=== PATIENT | female | born 1955 | race Caucasian/White ===

== ENCOUNTER → 2018-11-15 17:09 | Outpatient (CLI) | payer MEDICARE, SELFPAY ==
--- NOTE | 2018-11-15 17:17 | DI.RAD.S_ITS ---
PROCEDURE: XR ANKLE RT MIN 3V INDICATIONS: PAIN IN RT ANKLE AND JOINTS OF RT FOOT TECHNIQUE: 3 views of the ankle were acquired. COMPARISON: None. FINDINGS: Bones: No fractures or dislocations. Ankle mortise is normally aligned. No suspicious bony lesions. Prominent plantar and posterior calcaneal spurring. Diffuse hindfoot and midfoot degenerative spurring subchondral sclerosis. Soft tissues: No tibiotalar joint effusion. Achilles tendon appears normal. IMPRESSION: No fracture. Degenerative changes as above. Dictated by: Porfirio Silva M.D. on 11/16/2018 at 8:56 Approved by: Porfirio Silva M.D. on 11/16/2018 at 8:58
== END ==
PROVIDERS: Family Provider Internal Medicine; PCP Internal Medicine; Visit Provider Internal Medicine
DX: M25.571 Pain in right ankle and joints of right foot (principal); M77.31 Calcaneal spur, right foot
CPT/HCPCS: 73610

== ENCOUNTER → 2019-05-09 10:02 | Outpatient (CLI) | payer MEDICARE, SELFPAY ==
--- NOTE | 2019-05-09 | DI.MG.S_ITS ---
BILATERAL DIGITAL SCREENING MAMMOGRAM 3D/2D WITH CAD: 05/09/2019 CLINICAL: Routine screening. Family history of breast cancer. Comparison is made to exams dated: 04/21/2017 mammogram - [facility], 11/21/2015 mammogram, 11/20/2014 mammogram, and 04/10/2013 mammogram - [facility]. There are scattered fibroglandular elements in both breasts. Current study was also evaluated with a Computer Aided Detection (CAD) system. No significant masses, calcifications, or other findings are seen in either breast. There has been no significant interval change. IMPRESSION: NEGATIVE There is no mammographic evidence of malignancy. A 1 year screening mammogram is recommended. This exam was interpreted at Station ID: [id number]. NOTE: For mammograms, a report in lay terms will be sent to the patient. Approximately 15% of breast malignancies will not be visualized mammographically. In the management of a palpable breast mass, a negative mammogram must not discourage biopsy of a clinically suspicious lesion. Electronically Signed By: Po obregon/marck:05/09/2019 19:23:48 letter sent: Normal Exam ACR BI-RADS Category 1: Negative 3341F
== END ==
PROVIDERS: PCP Internal Medicine; Visit Provider Internal Medicine
DX: Z12.31 Encounter for screening mammogram for malignant neoplasm of breast (principal); Z80.3 Family history of malignant neoplasm of breast; Z78.0 Asymptomatic menopausal state; Z82.62 Family history of osteoporosis; R29.890 Loss of height
CPT/HCPCS: 77063; 77067; 77080; 77081

== ENCOUNTER → 2020-01-25 15:14 | Outpatient (CLI) | payer MEDICARE, SELFPAY ==
--- NOTE | 2020-01-25 15:18 | DI.RAD.S_ITS ---
PROCEDURE: XR LUMBAR SPINE 2-3V INDICATIONS: LOW BACK PAIN TECHNIQUE: 3 views of the lumbar spine were acquired. COMPARISON: None. FINDINGS: Bones: 5 [id number] vertebrae are present. There is moderately severe to severe degenerative disc disease in facet osteoarthritis from L3 inferiorly. This is most pronounced at L4-5 and L5-S1. Moderately severe degenerative disc disease is noted at the thoracic-lumbar junction, and there is no sign of recent compression fracture. There is normal bony alignment except for very mild convex leftward scoliosis centered at L3.. . No suspicious bony lesions. Soft tissues: Overlying bowel gas pattern is normal. No suspicious soft tissue calcifications. IMPRESSION: Chronic appearing degenerative disc disease and facet osteoarthritis that is moderately severe to severe at the lower half of the LS spine and most pronounced at L4-5 and especially L5-S1. Spinal and foraminal stenosis would be expected. Mild convex leftward scoliosis centered at L3. Dictated by: Joce Alex M.D. on 01/25/2020 at 15:46 Approved by: Joce Alex M.D. on 01/25/2020 at 15:48
== END ==
PROVIDERS: PCP Internal Medicine; Referring Provider Chiropractor; Visit Provider Chiropractor
DX: M54.5 Low back pain (principal); M47.816 Spondylosis without myelopathy or radiculopathy, lumbar region; M47.817 Spondylosis without myelopathy or radiculopathy, lumbosacral region; M51.35 Other intervertebral disc degeneration, thoracolumbar region; M51.36 Other intervertebral disc degeneration, lumbar region; M51.37 Other intervertebral disc degeneration, lumbosacral region; M41.86 Other forms of scoliosis, lumbar region
CPT/HCPCS: 72100

== ENCOUNTER → 2020-04-18 11:58 | Outpatient (CLI) | payer MEDICARE, SELFPAY ==
[2020-04-18 14:25] LABS: BUN Creatinine Ratio 24.6 (6-22); Blood Urea Nitrogen 16 mg/dL (7-17); Calcium 9.8 mg/dL (8.4-10.2); Carbon Dioxide 31 mmol/L (22-32); Chloride 102 mmol/L (98-107); Cholesterol 240 mg/dL (140-199); Estimated Glomerular Filt Rate > 60.0 mL/min (>60); Glucose 110 mg/dL (80-110); HDL Cholesterol 73 mg/dL (40-60); HEMOLYSIS < 15 (0-50); LDL Cholesterol Calculated 149 mg/dL (<100); Potassium 5.2 mmol/L (3.4-5.1); Sodium 137 mmol/L (137-145); Triglycerides 92 mg/dL (35-150)
== END ==
PROVIDERS: PCP Internal Medicine; Referring Provider Internal Medicine; Visit Provider Internal Medicine
DX: Z13.220 Encounter for screening for lipoid disorders (principal); I10 Essential (primary) hypertension
CPT/HCPCS: 36415; 80048; 80061

== ENCOUNTER 2020-05-24 12:01 | Emergency (ER) | payer MEDICARE, SELFPAY ==
[2020-05-24 12:18] VITALS: BP 168/117; PULSE 80; RESP 14; TEMP 36.8; O2SAT 98; BMI 31.3
--- NOTE | 2020-05-24 12:51 | ED_ITS ---
HPI - Abdominal Pain General Chief Complaint: Abdominal Pain Stated Complaint: THINK I HAVE APPENDICITIS Time Seen by Provider: 05/24/20 12:05 Source: patient Mode of arrival: Ambulatory Limitations: no limitations History of Present Illness HPI narrative: 65-year-old female nonsmoker with noncontributory medical history presents with a chief complaint of severe right lower quadrant pain gradually worsening since last night. She has had nausea but denies vomiting. She has had no fever or shaking chills. She has a poor appetite and last ate last evening and did not have anything this morning but a piece of dark chocolate at about 10:00 a.m.. She denies any dysuria, frequency or urgency. She denies any change in bowel habits with is constipation or diarrhea. She denies any history of the same. Motion makes her pain worse and rest seems to help. MD complaint: abdominal pain Related Data Previous Rx's Medication Instructions Recorded hydrocodone-acetaminophen 1 tab PO Q4-6H PRN #10 tab 05/24/20 ondansetron 4 mg PO TID-QID PRN #10 tab 05/24/20 Allergies Allergy/AdvReac Type Severity Reaction Status Date / Time latex Allergy Unknown Verified 05/24/20 12:21 Review of Systems Constitutional Constitutional: Denies chills, Denies fatigue, Denies fever(s), Denies frequent falls, Denies lethargy and Denies weakness Eyes Eyes: Denies change in vision, Denies eye discharge, Denies irritation and Denies loss of vision ENT Ears, Nose, Mouth, and Throat: Denies change in voice, Denies dizziness, Denies neck pain, Denies sore throat and Denies throat swelling Cardiovascular Cardiovascular: Denies chest pain, Denies irregular heart rhythm, Denies lightheadedness, Denies palpitations, Denies dyspnea, Denies dyspnea on exertion and Denies orthopnea Respiratory Respiratory: Denies cough, Denies dyspnea, Denies dyspnea on exertion and Denies wheezing Gastrointestinal Gastrointestinal: Reports abdominal pain, Denies change in bowel habits, Denies diarrhea, Reports nausea and Denies vomiting Musculoskeletal Musculoskeletal: Denies neck pain and Denies numbness Integumentary/Breasts Skin/Breast: Denies pruritus, Denies erythema, Denies rash and Denies wounds Neurologic Neurologic: Denies behavioral changes, Denies confusion, Denies dizziness, Denies frequent falls, Denies loss of vision, Denies numbness and Denies weakness Psychiatric Psychiatric: Denies anxiety, Denies behavioral changes, Denies confusion, Denies depression, Denies homicidal ideation and Denies suicidal ideation Endocrine Endocrine: Denies fatigue, Denies flushing and Denies palpitations Hematologic/Lymphatic Hematologic/Lymphatic: Denies easy bruising Allergic/Immunologic Allergic/Immunologic: Denies urticaria, Denies throat swelling and Denies wheezing Patient History Social History Smoking Status: Never smoker Smoking Status: Never smoker alcohol intake frequency: 0-2 drinks per day Substance Use Type: does not use Exam Narrative Exam Narrative: GENERAL: [65] year old patient appears stated age. Well- nourished, well-developed patient, in mild distress. HEAD: Atraumatic. Normocephalic. EYES: Pupils equal round and reactive. Extraocular motions intact. No scleral icterus. No injection or drainage. ENT: Nose without bleeding, purulent drainage. Throat without erythema, tonsillar hypertrophy or exudate. Airway patent. NECK: Trachea midline. Non tender CARDIOVASCULAR: Regular rate and rhythm without murmurs, gallops, or rubs. RESPIRATORY: Clear to auscultation. Breath sounds equal bilaterally. No wheezes, rales, or rhonchi. GASTROINTESTINAL: Abdomen soft, tender in the right lower quadrant with minimal localized peritonitis and mild rebound. Negative obturator, psoas or Rovsing's. Mild heel tap pain, nondistended. EXTREMITIES: No edema or joint tenderness. BACK: Nontender without deformity or crepitance. No flank tenderness. NEURO: AOx3. SKIN: No rash or erythema of visible areas Initial Vital Signs Initial Vital Signs: Vital Signs Temperature 98.3 F 05/24/20 12:18 Pulse Rate 80 05/24/20 12:18 Respiratory Rate 14 05/24/20 12:18 Blood Pressure 168/117 H 05/24/20 12:18 Pulse Oximetry 98 05/24/20 12:18 Course Orders Ordered: ED Orders 05/24/20 12:50 Complete Blood Count AUTO DIFF Stat Comprehensive Metabolic Panel Stat Lipase Stat 05/24/20 13:08 CT abdomen pelvis w con Stat Discontinued Medications Sodium Chloride (Normal Saline 0.9%) 1,000 mls @ 150 mls/hr IV CONT PATRICIO Last Infusion: 05/24/20 15:14 Dose: 0 mls/hr Documented by: Admin: 05/24/20 13:09 Dose: 150 mls/hr Documented by: TONIO Vital Signs Vital signs: Vital Signs - 8 hr 05/24/20 12:18 05/24/20 15:17 Temperature 98.3 F Pulse Rate 80 65 Respiratory Rate 14 18 Blood Pressure 168/117 H 132/63 Pulse Oximetry 98 97 MDM - Abdominal Pain Lab Data Result diagrams: 05/24/20 12:50 05/24/20 12:50 Labs: Lab Results 05/24/20 05/24/20 Range/Units 12:50 12:50 WBC 4.6 (4.5-11.0) X10^3/uL RBC 3.93 L (4.0-5.2) X10^6/uL Hgb 13.4 (12.0-16.0) g/dL Hct 38.1 (36-46) % MCV 96.9 (80-100) fL MCH 34.0 (26-34) PG MCHC 35.0 (30-36) % RDW 12.4 (11.6-14.8) % Plt Count 268 (150-400) X10^3/uL Neut % (Auto) 45.6 L (50-75) % Lymph % (Auto) 35.6 (25-40) % Ches[place] % (Auto) 11.9 (3-14) % Eos % (Auto) 6.4 H (2-4) % Baso % (Auto) 0.5 (0-2) % Neut # (Auto) 2100 (7404-9638) /uL Lymph # (Auto) 1600 (8486-9573) /uL Ches[place] # (Auto) 600 (0-900) /uL Eos # (Auto) 300 (0-450) /uL Baso # (Auto) 0 (0-100) /uL Sodium 136 L (137-145) mmol/L Potassium 4.5 (3.4-5.1) mmol/L Chloride 102 (98-107) mmol/L Carbon Dioxide 30 (22-32) mmol/L BUN 18 H (7-17) mg/dL Creatinine 0.59 (0.52-1.04) mg/dL Estimated GFR > 60.0 (>60) mL/min BUN/Creatinine Ratio 30.5 H (6-22) Glucose 111 H (80-110) mg/dL Calcium 9.2 (8.4-10.2) mg/dL Total Bilirubin 0.4 (0.2-1.3) mg/dL AST 32 (14-36) IU/L ALT 30 (<35) IU/L Alkaline Phosphatase 59 (38-126) U/L Total Protein 7.6 (6.3-8.2) g/dL Albumin 4.4 (3.5-5.0) g/dL Globulin 3.2 (1.7-4.1) g/dL Albumin/Globulin Ratio 1.4 (1.0-2.8) Lipase 94 (23-300) U/L Point of care testing: Urine Dip Bedside Urine Glucose Negative Bedside Urine Bilirubin - Negative Bedside Urine Ketone - Negative Urine Specific Wilson 1.010 Bedside Urine Occult Blood - Negative Bedside Urine pH 6.5 Bedside Urine Protein - Negative Bedside Urine Urobilinogen - Negative Bedside Urine Nitrite - Negative Bedside Urine Leukocytes - Negative Esterase Imaging Data CT scan - abdomen/pelvis: Radiologist's Impression: Chart Viewer Diagnostics DATE TYPE STATUS REF RANGE/AUTHOR Hx 05/24/20 13:08 Ari Alexandra 01/25/20 15:18 Joce Alex 05/09/19 00:00 CallPo 05/09/19 00:00 11/15/18 17:17 Porfirio Silva Mary E 65, F0 1955 DEP ER[facility] 160.02cm 80.286kg BMI: 31.4kg/m? Abdominal Pain Search Chart No Data to Display Total 30 MME/Day Pending Discharge ONSET Today 15:17 Marlyn Hyde 65 F [address] [address] [address] Scan Report Addendum Patient: Marlyn Hyde EMR#: [id number] : 1955cct:[id number] Age/Sex: 65 / FDate of Service: 05/24/20 Loc: ED Accession Number: [id number] Procedure: CT abdomen pelvis w con Ordering Provider: Uriel Roger D.O. ADDENDUM This report includes an Addendum and supersedes previous reports for this exam. PROCEDURE: CT ABDOMEN PELVIS W CON INDICATIONS: severe RLQ pain, nausea, anorexia TECHNIQUE: After the administration of intravenous contrast, 5 mm thick sections acquired from the diaphragm to the symphysis. 5 mm coronal and sagittal reformats were acquired. For radiation dose reduction, the following was used: automated exposure control, adjustment of mA and/or kV according to patient size. COMPARISON: None. FINDINGS: Image quality: There is metallic streak artifact from patient's left hip prosthesis. ABDOMEN: Lung bases: Lung bases are clear. Heart size is normal. Solid organs: There is hypoattenuation of the liver consistent with fatty infiltration with relative sparing along the gallbladder fossa. A small hypodensity is demonstrated within the anterior left hepatic lobe which is too small to characterize but likely represents a cyst. The gallbladder appears within normal limits without calcified gallstones. Biliary system is non-dilated. Pancreas enhances normally. No peripancreatic fat stranding or fluid collections. No pancreatic duct dilatation. The spleen is normal in size. There is an indeterminate left adrenal nodule measuring up to 1.5 cm. Kidneys demonstrate no hydronephrosis. Peritoneum and bowel: Bowel loops demonstrate normal wall thickness and caliber. The appendix is normal in appearance. There is colonic diverticulosis without acute diverticulitis. No free fluid or air. Nodes and vessels: No retroperitoneal or mesenteric adenopathy by size criteria. There is indistinct hazy fat stranding in the mesentery with mildly prominent subcentimeter mesenteric lymph nodes. Aorta and inferior vena cava are normal in size. Miscellaneous: No ventral hernias. PELVIS: Genitourinary: Bladder wall thickness is normal. A pessary ring is noted. Miscellaneous: No inguinal hernias or adenopathy. Bones: No suspicious bony lesions. No vertebral body compression fractures. IMPRESSION: 1. No evidence of acute appendicitis. 2. Mild hazy fat stranding in the mesentery with mildly prominent subcentimeter mesenteric lymph nodes. The findings are nonspecific but suggestive of a nonspecific inflammatory process such as sclerosing mesenteritis. 3. Hepatic steatosis. Dictated by: Ari Alexandra M.D. on 05/24/2020 at 14:41 Approved by: Ari Alexandra M.D. on 05/24/2020 at 14:45 ADDENDUM: As described above, there is an indeterminate left adrenal nodule measuring up to 1.5 cm. Further evaluation may be obtained with an adrenal protocol MRI or CT if clinically indicated. Dictated by: Ari Alexandra M.D. on 05/24/2020 at 15:04 Approved by: Ari Alexandra M.D. on 05/24/2020 at 15:04 Addendum Dictated By:Ari Alexandra MD Addendum Signed By: Addendum Cosigned By: DD/ TD/TT: 05/24/20 PROCEDURE: CT ABDOMEN PELVIS W CON INDICATIONS: severe RLQ pain, nausea, anorexia TECHNIQUE: After the administration of intravenous contrast, 5 mm thick sections acquired from the diaphragm to the symphysis. 5 mm coronal and sagittal reformats were acquired. For radiation dose reduction, the following was used: automated exposure control, adjustment of mA and/or kV according to patient size. COMPARISON: None. FINDINGS: Image quality: There is metallic streak artifact from patient's left hip prosthesis. ABDOMEN: Lung bases: Lung bases are clear. Heart size is normal. Solid organs: There is hypoattenuation of the liver consistent with fatty infiltration with relative sparing along the gallbladder fossa. A small hypodensity is demonstrated within the anterior left hepatic lobe which is too small to characterize but l ikely represents a cyst. The gallbladder appears within normal limits without calcified gallstones. Biliary system is non-dilated. Pancreas enhances normally. No peripancreatic fat stranding or fluid collections. No pancreatic duct dilatation. The spleen is normal in size. There is an indeterminate left adrenal nodule measuring up to 1.5 cm. Kidneys demonstrate no hydronephrosis. Peritoneum and bowel: Bowel loops demonstrate normal wall thickness and caliber. The appendix is normal in appearance. There is colonic diverticulosis without acute diverticulitis. No free fluid or air. Nodes and vessels: No retroperitoneal or mesenteric adenopathy by size criteria. There is indistinct hazy fat stranding in the mesentery with mildly prominent subcentimeter mesenteric lymph nodes. Aorta and inferior vena cava are normal in size. Miscellaneous: No ventral hernias. PELVIS: Genitourinary: Bladder wall thickness is normal. A pessary ring is noted. Miscellaneous: No inguinal hernias or adenopathy. Bones: No suspicious bony lesions. No vertebral body compression fractures. IMPRESSION: 1. No evidence of acute appendicitis. 2. Mild hazy fat stranding in the mesentery with mildly prominent subcentimeter mesenteric lymph nodes. The findings are nonspecific but suggestive of a nonspecific inflammatory process such as sclerosing mesenteritis. 3. Hepatic steatosis. Dictated by: Ari Alexandra M.D. on 05/24/2020 at 14:41 Discharge Plan Departure Patient Disposition: Home Clinical Impression: Abdominal pain, acute, right lower quadrant, Acute adenitis Discharge Date/Time: 05/24/20 15:20 Instructions: Acute Abdominal Pain Activity Restrictions/Additional Instructions: *You have been diagnosed with [acute right lower quadrant pain, likely due to inflamed nodes in your mesentery. Appendix looks good on CT scan and her labs are very reassuring.] *What to do: *Take medications as directed *Follow up with your primary care provider in 2-3 days, call for an appointment. Let them know you were seen in the Emergency Department and that we ask that you be seen in follow up *Return to ER if you should have any new, worsening or concerning symptoms Prescriptions: New hydrocodone-acetaminophen 5-325 mg tablet 1 tab PO Q4-6H PRN (Reason: pain) Qty: 10 RF: 0 ondansetron 4 mg tablet,disintegrating 4 mg PO TID-QID PRN (Reason: nausea and vomiting) Qty: 10 RF: 0 Referrals: Shaila Winchester MD [Primary Care Provider] -
[2020-05-24 13:01] LABS: Add Manual Diff / Slide Review NO; Basophils Absolute Auto 0 /uL (0-100); Basophils Percent Auto 0.5 % (0-2); Eosinophils Absolute Auto 300 /uL (0-450); Eosinophils Percent Auto 6.4 % (2-4); Hematocrit 38.1 % (36-46); Hemoglobin 13.4 g/dL (12.0-16.0); Lymphocytes Absolute Auto 1600 /uL (1100-4500); Lymphocytes Percent Auto 35.6 % (25-40); Mean Corpuscular Volume 96.9 fL (80-100); Monocytes Absolute Auto 600 /uL (0-900); Monocytes Percent Auto 11.9 % (3-14); Neutrophils Absolute Auto 2100 /uL (1500-7000); Neutrophils Percent Auto 45.6 % (50-75); Platelet Count 268 X10^3/uL (150-400); Red Blood Cell Count 3.93 X10^6/uL (4.0-5.2); Red Cell Distribution Width 12.4 % (11.6-14.8); White Blood Cell Count 4.6 X10^3/uL (4.5-11.0)
--- NOTE | 2020-05-24 13:08 | DI.CT.S_ITS ---
PROCEDURE: CT ABDOMEN PELVIS W CON INDICATIONS: severe RLQ pain, nausea, anorexia TECHNIQUE: After the administration of intravenous contrast, 5 mm thick sections acquired from the diaphragm to the symphysis. 5 mm coronal and sagittal reformats were acquired. For radiation dose reduction, the following was used: automated exposure control, adjustment of mA and/or kV according to patient size. COMPARISON: None. FINDINGS: Image quality: There is metallic streak artifact from patient's left hip prosthesis. ABDOMEN: Lung bases: Lung bases are clear. Heart size is normal. Solid organs: There is hypoattenuation of the liver consistent with fatty infiltration with relative sparing along the gallbladder fossa. A small hypodensity is demonstrated within the anterior left hepatic lobe which is too small to characterize but likely represents a cyst. The gallbladder appears within normal limits without calcified gallstones. Biliary system is non-dilated. Pancreas enhances normally. No peripancreatic fat stranding or fluid collections. No pancreatic duct dilatation. The spleen is normal in size. There is an indeterminate left adrenal nodule measuring up to 1.5 cm. Kidneys demonstrate no hydronephrosis. Peritoneum and bowel: Bowel loops demonstrate normal wall thickness and caliber. The appendix is normal in appearance. There is colonic diverticulosis without acute diverticulitis. No free fluid or air. Nodes and vessels: No retroperitoneal or mesenteric adenopathy by size criteria. There is indistinct hazy fat stranding in the mesentery with mildly prominent subcentimeter mesenteric lymph nodes. Aorta and inferior vena cava are normal in size. Miscellaneous: No ventral hernias. PELVIS: Genitourinary: Bladder wall thickness is normal. A pessary ring is noted. Miscellaneous: No inguinal hernias or adenopathy. Bones: No suspicious bony lesions. No vertebral body compression fractures. IMPRESSION: 1. No evidence of acute appendicitis. 2. Mild hazy fat stranding in the mesentery with mildly prominent subcentimeter mesenteric lymph nodes. The findings are nonspecific but suggestive of a nonspecific inflammatory process such as sclerosing mesenteritis. 3. Hepatic steatosis. Dictated by: Ari Alexandra M.D. on 05/24/2020 at 14:41 Approved by: Ari Alexandra M.D. on 05/24/2020 at 14:45
[2020-05-24] MEDS: SODIUM CHLORIDE 0.9% 1,000 ML 150 ML IV (13:09)
[2020-05-24 13:14] LABS: Alanine Aminotransferase 30 IU/L (<35); Albumin 4.4 g/dL (3.5-5.0); Albumin Globulin Ratio 1.4 (1.0-2.8); Alkaline Phosphatase 59 U/L (38-126); Aspartate Aminotransferase 32 IU/L (14-36); BUN Creatinine Ratio 30.5 (6-22); Bilirubin Total 0.4 mg/dL (0.2-1.3); Blood Urea Nitrogen 18 mg/dL (7-17); Calcium 9.2 mg/dL (8.4-10.2); Carbon Dioxide 30 mmol/L (22-32); Chloride 102 mmol/L (98-107); Estimated Glomerular Filt Rate > 60.0 mL/min (>60); Globulin 3.2 g/dL (1.7-4.1); Glucose 111 mg/dL (80-110); HEMOLYSIS < 15 (0-50); Lipase 94 U/L (23-300); Potassium 4.5 mmol/L (3.4-5.1); Sodium 136 mmol/L (137-145); Total Protein 7.6 g/dL (6.3-8.2)
[2020-05-24 15:17] VITALS: BP 132/63; PULSE 65; RESP 18; O2SAT 97
== END 2020-05-24 15:20 | disposition home or self-care (01) ==
PROVIDERS: Emergency Provider Emergency Medicine; PCP Internal Medicine
DX: L04.9 Acute lymphadenitis, unspecified (principal); R10.31 Right lower quadrant pain
CPT/HCPCS: 36415; 74177; 80053; 81003; 83690; 85025; 96360; 96361; 99284; Q9967

== ENCOUNTER → 2021-03-18 14:13 | Outpatient (CLI) | payer MEDICARE, SELFPAY ==
--- NOTE | 2021-03-18 | DI.US.S_ITS ---
PROCEDURE: US ABD AORTA ANEURYSM SCREEN INDICATIONS: ENCOUNTER FOR SCREENING OF CARDIOVASCULAR DISORDERS TECHNIQUE: Real time scanning was performed of the aorta and iliac arteries, with image documentation. COMPARISON: None. FINDINGS: Aorta: Proximal aortic diameter measures 2.4 cm. Mid-aorta measures 2 cm. Distal aortic diameter is 2 cm. Iliac arteries: Right common iliac artery measures 1.2 cm. Left common iliac artery measures 1.2 cm. Incidentally noted are 2 hypoechoic areas within pancreatic head and body. The lesion in pancreatic head region measures 1 x 0.5 x 1.5 cm in size. The lesion in pancreatic body region measures 8 x 9 x 7 mm in size. No gross internal vascularity is seen. IMPRESSION: 1. No evidence of abdominal aortic aneurysm. 2. 2 small hypodense areas seen in pancreatic head and body as described above, and may represent IPMN. Dedicated MRI of abdomen without and with contrast can be done for further evaluation of this region. Dictated by: Bright Light M.D. on 03/18/2021 at 14:52 Approved by: Bright Light M.D. on 03/18/2021 at 15:23
--- NOTE | 2021-03-18 | DI.MG.S_ITS ---
BILATERAL DIGITAL SCREENING MAMMOGRAM 3D/2D WITH CAD: 03/18/2021 CLINICAL: Routine screening. Family history of breast cancer. [facility] is made [facility]: [facility], 11/21/2015 mammogram - [facility], and 04/21/2017 [facility] - [facility]. There are scattered fibroglandular elements in both breasts. Current study was also evaluated with a Computer Aided Detection (CAD) system. No significant masses, calcifications, or other findings are seen in either breast. There has been no significant interval change. IMPRESSION: NEGATIVE There is no mammographic evidence of malignancy. A 1 year screening mammogram is recommended. This exam was interpreted at Station ID: [id number]. NOTE: For mammograms, a report in lay terms will be sent to the patient. Approximately 15% of breast malignancies will not be visualized mammographically. In the management of a palpable breast mass, a negative mammogram must not discourage biopsy of a clinically suspicious lesion. Electronically Signed By: Ari choe/marck:03/18/2021 15:07:12 letter sent: Normal Exam ACR BI-RADS Category 1: Negative 3341F
== END ==
PROVIDERS: PCP Internal Medicine; Referring Provider Internal Medicine; Visit Provider Internal Medicine
DX: Z12.31 Encounter for screening mammogram for malignant neoplasm of breast (principal); Z13.6 Encounter for screening for cardiovascular disorders; Z80.3 Family history of malignant neoplasm of breast
CPT/HCPCS: 76706; 77063; 77067

== ENCOUNTER → 2021-12-28 15:23 | Outpatient (CLI) | payer MEDICARE, SELFPAY ==
--- NOTE | 2021-12-28 | DI.RAD.S_ITS ---
PROCEDURE: XR HIP W PEL IF DONE RT 2V INDICATIONS: RIGHT HIP PAIN TECHNIQUE: AP pelvis with lateral view(s) of the right hip(s). COMPARISON: [facility], CR, [id number] W PEL IF PERFORMED, 09/18/2015, 15:25. FINDINGS: Bones: Left hip arthroplasty. Mild joint space narrowing and periarticular osteophyte formation at the right hip joint. No fractures or dislocations. Pelvic ring appears intact. No suspicious bony lesions. Soft tissues: The visualized bowel gas pattern is normal. No suspicious soft tissue calcifications. IMPRESSION: 1. Right hip osteoarthritis. 2. Left hip arthroplasty. 3. No acute fracture. No osseous lesion. If symptoms and/or clinical suspicion for pathology persist, further assessment with repeat, or advanced imaging (e.g., CT, MRI, or bone scan) may be helpful for further assessment. Dictated by: Corey Roach M.D. on 12/28/2021 at 16:31 Approved by: Corey Roach M.D. on 12/28/2021 at 16:31
== END ==
PROVIDERS: PCP Internal Medicine; Referring Provider Internal Medicine; Visit Provider Internal Medicine
DX: M16.11 Unilateral primary osteoarthritis, right hip (principal); M25.551 Pain in right hip; Z96.642 Presence of left artificial hip joint
CPT/HCPCS: 73502

== ENCOUNTER → 2022-01-06 13:11 | Outpatient (CLI) | payer MEDICARE, SELFPAY ==
[2022-01-06 14:28] LABS: Hemoglobin A1C% w Est Avg Glu 5.7 % (4.0-6.0)
[2022-01-06 14:45] LABS: Alanine Aminotransferase 31 IU/L (<35); Albumin 4.5 g/dL (3.5-5.0); Albumin Globulin Ratio 1.7 (1.0-2.8); Alkaline Phosphatase 54 U/L (38-126); Aspartate Aminotransferase 34 IU/L (14-36); BUN Creatinine Ratio 26.5 (6-22); Bilirubin Total 0.4 mg/dL (0.2-1.3); Blood Urea Nitrogen 18 mg/dL (7-17); Calcium 9.3 mg/dL (8.4-10.2); Carbon Dioxide 29 mmol/L (22-32); Chloride 103 mmol/L (98-107); Cholesterol 260 mg/dL (140-199); Estimated Glomerular Filt Rate > 60 mL/min (>60); Globulin 2.7 g/dL (1.7-4.1); Glucose 105 mg/dL (80-110); HDL Cholesterol 68 mg/dL (40-60); HEMOLYSIS < 15 (0-50); LDL Cholesterol Calculated 170 mg/dL (<100); Potassium 4.2 mmol/L (3.4-5.1); Sodium 138 mmol/L (137-145); Total Protein 7.2 g/dL (6.3-8.2); Triglycerides 110 mg/dL (35-150)
[2022-01-07 04:37] LABS: HCV AB <0.1 s/co ratio (0.0-0.9)
== END ==
PROVIDERS: PCP Internal Medicine; Referring Provider Internal Medicine; Visit Provider Internal Medicine
DX: E78.5 Hyperlipidemia, unspecified (principal); R73.01 Impaired fasting glucose; Z11.59 Encounter for screening for other viral diseases
CPT/HCPCS: 36415; 80053; 80061; 83036; 86803

== ENCOUNTER → 2024-01-02 14:25 | Outpatient (CLI) | payer MEDICARE, SELFPAY ==
--- NOTE | 2024-01-02 | DI.MG.S_ITS ---
BILATERAL DIGITAL SCREENING MAMMOGRAM 3D/2D WITH CAD: 01/02/2024 CLINICAL: Routine screening. Routine screening. Family history of breast cancer. Comparison is made to exams dated: 03/18/2021 mammogram, 05/09/2019 mammogram, and 04/21/2017 mammogram - [facility]. There are scattered areas of fibroglandular density in both breasts (category b / 25%-50% glandular tissue). Current study was also evaluated with a Computer Aided Detection (CAD) system. There are benign vascular calcifications in both breasts. No significant masses, calcifications, or other findings are seen in either breast. There has been no significant interval change. IMPRESSION: BENIGN There is no mammographic evidence of malignancy. A 1 year screening mammogram is recommended. Based on the Tyrer Cuzick model (a risk assessment model) the patient's lifetime risk is 8.7% and her 10 year risk is 5.6%. According to the ACR, ACS, and NCCN guidelines, an annual breast MRI exam along with mammogram is recommended if the patient's lifetime risk is 20% or greater. This exam was interpreted at Station ID: [id number]. NOTE: For mammograms, a report in lay terms will be sent to the patient. Approximately 15% of breast malignancies will not be visualized mammographically. In the management of a palpable breast mass, a negative mammogram must not discourage biopsy of a clinically suspicious lesion. Electronically Signed By: Ruth bourgeois/marck:01/02/2024 17:04:59 letter sent: Normal Exam ACR BI-RADS Category 2: Benign Finding(s) 3342F
== END ==
LOC: MAMMO 14:26
PROVIDERS: PCP Internal Medicine; Referring Provider Internal Medicine; Visit Provider Internal Medicine
DX: Z12.31 Encounter for screening mammogram for malignant neoplasm of breast (principal); Z80.3 Family history of malignant neoplasm of breast; R92.323 Mammographic fibroglandular density, bilateral breasts
CPT/HCPCS: 77063; 77067

== ENCOUNTER → 2024-01-30 15:12 | Outpatient (CLI) | payer MEDICARE, SELFPAY ==
[2024-01-30 16:09] LABS: Hemoglobin A1C% w Est Avg Glu 5.5 % (4.0-6.0)
[2024-01-30 16:43] LABS: Alanine Aminotransferase 23 IU/L (<35); Albumin 4.3 g/dL (3.5-5.0); Albumin Globulin Ratio 1.5 (1.0-2.8); Alkaline Phosphatase 56 U/L (38-126); Aspartate Aminotransferase 30 IU/L (14-36); BUN Creatinine Ratio 25.4 (6-22); Bilirubin Total 0.4 mg/dL (0.2-1.3); Blood Urea Nitrogen 18 mg/dL (7-17); Calcium 9.6 mg/dL (8.4-10.2); Carbon Dioxide 29 mmol/L (22-32); Chloride 105 mmol/L (98-107); Cholesterol 259 mg/dL (140-199); Estimated Glomerular Filt Rate > 60 mL/min (>60); Globulin 2.8 g/dL (1.7-4.1); Glucose 102 mg/dL (80-110); HDL Cholesterol 81 mg/dL (40-60); HEMOLYSIS < 15 (0-50); LDL Cholesterol Calculated 137 mg/dL (<100); Potassium 4.6 mmol/L (3.4-5.1); Sodium 138 mmol/L (137-145); Total Protein 7.1 g/dL (6.3-8.2); Triglycerides 205 mg/dL (35-150)
== END ==
PROVIDERS: PCP Internal Medicine; Referring Provider Internal Medicine; Visit Provider Internal Medicine
DX: R73.03 Prediabetes (principal); E78.5 Hyperlipidemia, unspecified
CPT/HCPCS: 36415; 80053; 80061; 83036

== ENCOUNTER → 2025-05-10 11:26 | Outpatient (CLI) | payer MEDICARE, SELFPAY ==
[2025-05-10 12:58] LABS: Alanine Aminotransferase 28 IU/L (<35); Albumin 4.5 g/dL (3.5-5.0); Albumin Globulin Ratio 1.6 (1.0-2.8); Alkaline Phosphatase 58 U/L (38-126); Blood Urea Nitrogen 18 mg/dL (7-17); Calcium 9.7 mg/dL (8.4-10.2); Carbon Dioxide 27 mmol/L (22-32); Chloride 101 mmol/L (98-107); Cholesterol 268 mg/dL (140-199); Estimated Glomerular Filt Rate > 60 mL/min (>60); Globulin 2.9 g/dL (1.7-4.1); Glucose 100 mg/dL (70-99); HDL Cholesterol 81 mg/dL (40-60); HEMOLYSIS < 15 (0-50); Potassium 4.8 mmol/L (3.4-5.1); Sodium 136 mmol/L (137-145); Total Protein 7.4 g/dL (6.3-8.2); Triglycerides 139 mg/dL (35-150)
== END ==
PROVIDERS: PCP Internal Medicine; Referring Provider Internal Medicine; Visit Provider Internal Medicine
DX: E78.5 Hyperlipidemia, unspecified (principal); I10 Essential (primary) hypertension; R73.01 Impaired fasting glucose
CPT/HCPCS: 36415; 80053; 80061